=== PATIENT | male | born 1955 | race African-American/Black ===

== ENCOUNTER → 2018-10-21 | Outpatient (CLI) | payer OTHER ==
[2018-10-21 11:32] LABS: FREE T4 0.99 ng/dL (0.76-1.46); THYROID STIM HORMONE (TSH) 0.432 uIU/mL (0.358-3.74)
== END | disposition home or self-care (01) ==
LOC: LAB 10:38
PROVIDERS: ATTEND Surgery
DX: E07.9 Disorder of thyroid, unspecified (principal)
CPT/HCPCS: 36415; 84436; 84439; 84443

== ENCOUNTER → 2018-10-29 | Outpatient (CLI) | payer OTHER ==
--- NOTE | 2018-10-29 16:56 | RAD ---
CLINICAL HISTORY: Bilateral thyroid masses COMPARISON: None available. PROCEDURE: Preliminary sonographic images of the thyroid gland were obtained. Bilateral thyroid nodules are seen. The procedure and risks of ultrasound guided aspiration were explained to the patient and informed written consent obtained. Verification pause/timeout was observed. Laterality was confirmed. The site of aspiration was marked. Using standard sterile technique, 4 25 G fine needle aspirations of single bilateral thyroid nodules were obtained. There were no immediate complications. The patient was observed in the radiology department for 30 minutes and released in satisfactory condition. Estimated blood loss: 0 mL Performing physician: Dr. Max Sapp IMPRESSION: 1. Successful FNA of the bilateral thyroid nodules. Electronically signed by: Max Sapp MD (10/29/2018 4:53 PM) [facility]
--- NOTE | 2018-10-31 18:06 | PATHOLOGY ---
Note [facility] Accession Number: [id number] TESTS RESULT FLAG UNITS REF RANGE LAB Clinician Provided Cytology Information No. of containers..01 Other (Miscellaneous) Source: LT THYROID DIAGNOSIS: LT THYROID NEGATIVE FOR MALIGNANT CELLS. B[place]ES[place] CATEGORY II. SPECIMEN CONSISTS OF ABUNDANT BENIGN FOLLICULAR CELLS, HEMOSIDERIN-LADEN MACROPHAGES, SCANT COLLOID, AND BLOOD. THIS PATTERN IS CONSISTENT WITH ADENOMATOID NODULE. THIS INTERPRETATION INCLUDES EVALUATION OF A CELL BLOCK. Pathologist ICD10: 02 R89.6 Signed out by: 02 Vasquez Saleem MD, Pathologist NPI- [id number] Performed by: Uyen Barnes, Home Care Nurse ([facility]) Gross description: 01 30ML, COLORLESS, CLOUDY /LCS FLAG LEGEND: L-Low Normal,H-High Normal,LL-Alert Low,HH-Alert High <-Panic Low,>-Panic High,A-Abnormal,AA-Critical Abnormal Performed at: [address] [place] [address] Calixto Arroyo MD, [address] [facility] [address] [place] [address] Vasquez Saleem MD, Specimen Comment: A duplicate report has been generated due to demographic updates. Performed at: [address], [place], [place] [id number] MD Calixto Arroyo MD Phone: [phone]
== END | disposition home or self-care (01) ==
LOC: EDUNIT# 13:45 → US 14:02
PROVIDERS: ATTEND Surgery
DX: E04.1 Nontoxic single thyroid nodule (principal)
CPT/HCPCS: 10005; 76942; 88173; 88305